=== PATIENT | female | born 1985 | race Caucasian/White ===

== ENCOUNTER 2016-10-04 09:02 | Emergency (ER) | payer MEDICAID ==
[~2016-10-04] VITALS: Ht 165.1 cm; Wt 91.5 kg
[2016-10-04 09:22] VITALS: Ht 165.1 cm; Wt 91.5 kg
[2016-10-04 09:56] LABS: ADD SCAN DIFF NO
[2016-10-04 10:05] LABS: BASOPHILS % 0.4 % (0.0-2.0); EOSINOPHILS # 0.2 10^3/ul (0.0-0.5); HEMATOCRIT 39.7 % (37.0-47.0); HEMOGLOBIN 13.5 g/dl (12.0-16.0); LYMPHOCYTES % 22.9 % (15.0-51.0); MEAN CORPUSCULAR HEMOGLOBIN 29.3 pg (29.0-33.0); MEAN CORPUSCULAR VOLUME 86.1 fl (82.0-101.0); MONOCYTE # 0.5 10^3/ul (0.3-0.9); MONOCYTES % 5.8 % (0.0-11.0); NEUTROPHIL # 5.9 10^3/ul (1.6-7.5); NEUTROPHILS % 68.7 % (39.0-77.0); PLATELET COUNT 284 10^3/UL (140-415); RED BLOOD COUNT 4.61 10^6/ul (4.20-5.40); RED CELL DISTRIBUTION WIDTH 13.2 % (11.5-14.5); WHITE BLOOD COUNT 8.6 10^3/ul (4.8-10.8)
[2016-10-04 10:10] LABS: ADD UMIC YES; URINE BILIRUBIN (Dip) NEGATIVE (NEGATIVE); URINE BLOOD (Dip) NEGATIVE (NEGATIVE); URINE COLOR LT. YELLOW (YELLOW); URINE GLUCOSE (Dip) NEGATIVE (NEGATIVE); URINE KETONES (Dip) NEGATIVE (NEGATIVE); URINE LEUKOCYTE ESTERASE (Dip) 1+ (NEGATIVE); URINE NITRITE (Dip) NEGATIVE (NEGATIVE); URINE TOTAL PROTEIN (Dip) NEGATIVE (NEGATIVE); URINE UROBILINOGEN (Dip) 0.2 E.U./dL (0.1-1.0)
[2016-10-04 10:27] LABS: SQUAMOUS EPITHELIAL CELL,UR MODERATE; URINE RBCS NONE SEEN /HPF (0)
[2016-10-04 10:28] LABS: BACTERIA,URINE FEW
--- NOTE | 2016-10-04 10:30 | RADRPT ---
PROCEDURE: US OB. CLINICAL INDICATION: Vaginal bleeding TECHNIQUE: Transabdominal and endovaginal imaging of the gravid uterus is available for review COMPARISON: None available FINDINGS: There is a single intrauterine demonstrating a heart rate of 174 bpm. The crown-rump anival th equals 2.42 cm, giving an estimated gestational age of 8 weeks 4 days by ultrasound criteria. No subchorionic hemorrhage is identified. The ovaries are unremarkable. IMPRESSION: Single live intrauterine with an estimated gestational age of 8 weeks 4 days by ultrasound criteria and an estimated date of delivery of 05/12/2017. RPTAT: HH .Leah Frazier MD, MD Date Time Electronically viewed and signed by .Leah Frazier MD, on 10/04/2016 10:30 .G/
[2016-10-04] MEDS ORDERED: CEPH-443 PO (11:17)
--- NOTE | 2016-10-04 11:33 | ERD ---
ER Documentation Chief Complaint Date/Time DATE: 10/04/16 TIME: 11:27 Chief Complaint 9 WEEKS WITH SUPRA PUBIC PAIN HPI This is a 31-year-old female stating that she is 9 weeks presenting to the emergency department complaining of suprapubic tenderness for 1 day. Patient states that the pain is around 7 out of 10, she states that it is worse with bending motion and walking. [facility]LOMATIC OFFICER. She denies any fever, nausea, vomiting. She admits to having dysuria. Denies any vaginal discharge. Patient states that she takes the right vitamins she has not taken any other medications for this peer ROS All systems reviewed and are negative except as per history of present illness. Medications Home Meds Active Scripts Cephalexin* (Keflex*) 500 Mg Capsule, 500 MG PO QID for 7 Days, CAP Prov:ROLF MIKE PA-C 10/04/16 Allergies Allergies: Coded Allergies: No Known Allergy (Verified , 10/04/16) PMhx/Soc Medical and Surgical Hx: pt denies Medical Hx, pt denies Surgical Hx Hx Alcohol Use: No Hx Substance Use: No Hx Tobacco Use: No Smoking Status: Never smoker Physical Exam Vitals Vital Signs Date Time Temp Pulse Resp B/P Pulse Ox O2 Delivery O2 Flow Rate FiO2 10/04/16 09:22 98.9 78 18 127/74 98 Physical Exam General: well-developed/well-nourished, in no apparent distress, non-toxic appearing HENT: NC/AT, bilateral tympanic membrane is normal with good cone of light, nares patent, oropharynx clear without exudates Eyes: Conjunctiva normal, PERRLA, EOMI Neck: Supple, no lymphadenopathy Pulm: CTA bilaterally, no rales, rhonchi, or wheezing heard CV: Normal S1S2 GI: Soft, non-distended, normal bowel sounds, tender to palpation in pelvic region, negative rosvings, negative aj's Back: No midline tenderness, no masses, No CVAT Ext: No clubbing, cyanosis, or edema Neuro: Alert and Orientated, gait normal Skin: Intact, normal turgor Psych: Normal mood and mentation Result Diagram: 10/04/16 0946 Results 24 hrs Laboratory Tests Test 10/04/16 09:45 3 09:46 Urine Bacteria FEW Urine Bilirubin NEGATIVE Urine Clarity CLEAR Urine Color LT. YELLOW Urine Glucose NEGATIVE% Urine Hemoglobin NEGATIVE Urine Ketones NEGATIVE Urine Leukocyte Esterase 1+ Urine Microscopic RBC NONE SEEN/HPF Urine Microscopic WBC 0-2/HPF Urine Nitrite NEGATIVE Urine Specific [place] 1.015 Urine Squamous Epithelial Cells MODERATE Urine Total Protein NEGATIVE Urine Urobilinogen 0.2 E.U./dL Urine pH 6.5 Basophils # 0.010^3/ul Basophils % 0.4% Beta HCG, Quantitative 465802.0mIU/ml Eosinophils # 0.210^3/ul Eosinophils % 2.0% Hematocrit 39.7% Hemoglobin 13.5g/dl Lymphocytes # 2.010^3/ul Lymphocytes % 22.9% Mean Corpuscular Hemoglobin 29.3pg Mean Corpuscular Hemoglobin Concent 34.0g/dl Mean Corpuscular Volume 86.1fl Mean Platelet Volume 10.0fl Monocytes # 0.510^3/ul Monocytes % 5.8% Neutrophils # 5.910^3/ul Neutrophils % 68.7% Nucleated Red Blood Cells # 0.010^3/ul Nucleated Red Blood Cells % 0.0/100WBC Platelet Count 13715^3/UL Red Blood Count 4.6110^6/ul Red Cell Distribution Width 13.2% White Blood Count 8.610^3/ul Procedures/MDM MDM: 31-year-old female stating that she is 9 weeks presents to the ER with pelvic pain in which is likely due to a urinary tract infection. Low suspicion for complete , ectopic , molar , ovarian torsion, appendicitis, cholecystitis, pancreatitis, obstruction, pyelonephritis due to diagnostic testing and physical examination. UA, urine culture, blood work, ultrasound was done in the ED. Patient needs to follow-up with an DIPLOMATIC OFFICER for further evaluation and management. On examination patient appears well, she has stable vital signs and afebrile. Lab work was done. CBC did not show any evidence of leukocytosis or anemia. Beta hCG was ~100,000 which is a little bit more elevated than normal for 8 week . However I have discussed this case with Dr. Ann, patient will follow up with her DIPLOMATIC OFFICER 2 days for repeat lab work. OB ultrasound was done and did not show any evidence of ectopic, molar . US stated: Single live intrauterine with an estimated gestational age of 8 weeks 4 days by ultrasound criteria and an estimated date of delivery of 05/12/2017. Disposition: hemodynamically stable. Prescription for Keflex was provided for the next 7-10 days. Patient will follow-up with her DIPLOMATIC OFFICER in 2 days. Discussed return sooner for any worsening signs or symptoms. Discussed to return to the ED for any worsening signs or symptoms. Patient understood and agreed with this plan. Departure Diagnosis: Primary Impression: UTI in Trimester: first trimester Qualified Code: O23.41 - UTI in , first trimester Condition: Stable Patient Instructions: Understanding Urinary Tract Infections (UTIs) [facility] Usted se green hecho un examen mdico de control que le indica que no est en janna condicin que requiera tratamiento urgente en el Departamento de Emergencia. Un estudio ms profundo y el tratamiento de whitt condicin pueden esperar sin ningn riesgo hasta que usted sea atendida/o en el consultorio de whitt mdico o janna cl lorenza. Es responsabilidad suya arreglar janna sterling para el seguimiento del yuan. MANEJO DE CONDICIONES NO URGENTES EN EL FUTURO 1) Si usted tiene un mdico de atencin primaria: Usted debera llamar a whitt mdico de atencin primaria antes de venir al departamento de emergencia. Despus de las horas de consultorio, whitt doctor o whitt asociado/a est disponible por telfono. El mdico o enfermero de yue en el servicio telefnico puede asesorarle por alvino medio para atender el problema, o yuan contrario se puede programar janna sterling. 2) Si usted no tiene un mdico de atencin primaria: Llame al mdico o clnica de referencia que aparece abajo kamaljit las horas de consultorio para hacer janna sterling para que le vean. CLINICAS: [facility] [phone] [facility] [phone] [facility] [phone] [place] [id number] [phone] [place] [id number] [phone] [facility] [phone] [address] Additional Instructions: Llame al doctor MAANA y tony janna STERLING PARA DENTRO 2 TURCIOS.Dgale a la secretaria que nosotros le instruimos hacer esta sterling.Avise o llame si whitt condicin se empeora antes de la sterling. Regresa aqui si peor o no mejor. [place] toda la medicina krystle y radha se le indic. Regrese a estas instalaciones si no se mejora radha esperbamos o radha le dijimos. ROLF MIKE PA-C Oct 04, 2016 11:33
[2016-10-04 11:51] VITALS: BP 134/67; PULSE 77; RESP 16; TEMP 98.9
== END 2016-10-04 11:30 | disposition home or self-care (01) ==
LOC: FTE 09:02
DX: O23.41 Unspecified infection of urinary tract in pregnancy, first trimester (principal); R10.30 Lower abdominal pain, unspecified; R10.2 Pelvic and perineal pain; Z3A.08 8 weeks gestation of pregnancy
CPT/HCPCS: 36415; 76801; 76817; 81001; 84702; 85025; 86900; 86901; Z7502; 81003

== ENCOUNTER 2017-03-18 10:31 | Outpatient (CLI) | payer MEDICAID ==
[~2017-03-18] VITALS: Ht 167.6 cm; Wt 93.2 kg
[~2017-03-18 10:31] MED LIST: CEPH-443 PO
[2017-03-18 12:05] VITALS: BP 101/58; PULSE 80; RESP 18; Ht 167.6 cm; Wt 93.2 kg
[2017-03-18] MEDS ORDERED: PRENAT PO (12:05)
--- NOTE | 2017-03-18 14:08 | RADRPT ---
PROCEDURE: US biophysical profile. CLINICAL INDICATION: Status post fall. well-being. TECHNIQUE: Multiple sonographic images of the uterus were obtained. The images were revi ewed on a PACS workstation. COMPARISON: Pelvic ultrasound. 10/04/2016. FINDINGS: There is a single live intrauterine gestation. heart rate is 154 beats per minute. The position is cephalic. The placenta is posterior, grade 1-2. No evidence of placental abruption. The SONIYA is 10.0 cm. Breathing Movement: 2 Gross Body Movement: 2 Tone: 2 Qualitative Amniotic Fluid Volume: 2 TOTAL: 8 IMPRESSION: 1. Single viable intrauterine gestation. 2. Biophysical profile = 03/13. 3. SONIYA = 10.0 cm. RPTAT: QQ .Pippa Randall MD, MD Date Time Electronically viewed and signed by .Pippa Randall MD, MD on 03/18/2017 14:08 .N/
--- NOTE | 2017-03-18 15:34 | PN ---
Triage Information Date/Time Reason for visit: She has swollen on her stomach side arcos , no contraction, biophysical profile 8 out of 8 SONIYA 10 Kb negative Weeks of Gestation 32 /Para Diabetes: none Objective Vital Signs Date Time Temp Pulse Resp B/P Pulse Ox O2 Delivery O2 Flow Rate FiO2 03/18/17 12:05 98.9 80 18 101/58 97 Room Air Heart Rate: 130's Contractions: None Results/Medications Results 24 hrs Laboratory Tests Test 03/18/17 12:35 Kleihauer-Betke Stain 0.0000 Disposition: Discharge Assessment/Plan Advised bedrest hydration follow-up with [facility] in 24 hours MARIA MATHUR MD Mar 18, 2017 15:34
--- NOTE | 2017-03-18 15:35 | TRIAGE ---
OB Triage Datetime Report Generated by CPN: 03/18/2017 15:35 Datetime: 03/18/2017 15:06 Monitor Mode: External US Datetime: 03/18/2017 15:05 Maternal Assessment Level of Consciousness: Fully Conscious DTR's/Clonus: DTRs 1+ Headache: Denies Blurred Vision: No Respiratory Effort: Unlabored Breath Sounds, Left: Clear and Equal Breath Sounds, Right: Clear and Equal Nausea/Vomiting: Denies RUQ Epigastric Pain: Denies Facial Edema: None Labor Evaluation Frequency: NONE Pattern: Normal: <= 5 Contractions in 10 Minutes Heart Rate FHR Baseline Rate: 135 Monitor Mode: External US Variability: Moderate 6-25 bpm Accelerations: 15X15 Decelerations: None Category: Category I Pain Presence: None/Denies Pain Type: N/A Vaginal Exam Membrane Status: Intact Datetime: 03/18/2017 14:00 Stage of : OB Triage Maternal Assessment Level of Consciousness: Fully Conscious Labor Evaluation Frequency: none Monitor Mode: External Resting Tone [place]: Relaxed Heart Rate FHR Baseline Rate: 135 Monitor Mode: External US Variability: Moderate 6-25 bpm Accelerations: 15X15 Decelerations: None Pain Assessment Pain Scale: 0 Pain Goal: 0 Vaginal Exam Membrane Status: Intact Vaginal Bleeding: None Datetime: 03/18/2017 13:00 Stage of : OB Triage Maternal Assessment Level of Consciousness: Fully Conscious Labor Evaluation Frequency: none Monitor Mode: External Resting Tone [place]: Relaxed Heart Rate FHR Baseline Rate: 135 Monitor Mode: External US Variability: Moderate 6-25 bpm Accelerations: 15X15 Decelerations: None Pain Assessment Pain Scale: 0 Pain Goal: 0 Vaginal Exam Membrane Status: Intact Vaginal Bleeding: None Datetime: 03/18/2017 12:01 Assessment Type: Triage Maternal Assessment Level of Consciousness: Fully Conscious DTR's/Clonus: DTRs 2+; No Clonus Headache: Denies Blurred Vision: No Respiratory Effort: Unlabored; Regular Rhythm; Equal Expansion Breath Sounds, Left: Clear and Equal Breath Sounds, Right: Clear and Equal Nausea/Vomiting: Denies RUQ Epigastric Pain: Denies Lower Extremities Edema: None Degree: None Upper Extremities Edema: None Degree: None Facial Edema: None Fall Risk Assessment History of Falling: (0) No Secondary Diagnosis: (0) No Ambulatory Aid: (0) Bedrest/Nurse Assist IV Therapy: (0) No Gait: (0) Normal/Bedrest/Immobile Mental Status: (0) Oriented to Own Ability Fall Score: 0 Fall Risk Score Definition: No Risk: No action required Datetime: 03/18/2017 12:00 Stage of : OB Triage Time of Arrival: 03/18/2017 10:18 EGA: 32.3 Arrived By: Ambulatory Arrived From: Home Chief Complaint: PT HERE S/P FALL ONTO KNEES Movement: Present Contractions: Denies/Absent Rupture of Membranes: Denies Vaginal Bleeding: None Vaginal Discharge: Denies Recent Sexual Intercouse: Denies Abdominal Trauma: Fall Patient Complaints: None Time Provider Notified: 03/18/2017 12:27 Provider Notified: KAREEN Initial Plan: KB STAIN, BPP Maternal Assessment Level of Consciousness: Fully Conscious Labor Evaluation Frequency: none Monitor Mode: External Resting Tone [place]: Relaxed Heart Rate FHR Baseline Rate: 145 Monitor Mode: External US Variability: Moderate 6-25 bpm Accelerations: 15X15 Decelerations: None Category: Category I Pain Assessment Pain Scale: 0 Pain Goal: 0 Vaginal Exam Membrane Status: Intact Vaginal Bleeding: None Datetime: 03/18/2017 10:55 Monitor Mode: External Monitor Mode: External US
== END 2017-03-18 15:40 | disposition home or self-care (01) ==
LOC: OBT 10:31 → L-D 10:32 → OBT 15:40
PROVIDERS: ATTEND Obstetrics & Gynecology
DX: O26.893 Other specified pregnancy related conditions, third trimester (principal); Z3A.32 32 weeks gestation of pregnancy; R10.9 Unspecified abdominal pain
CPT/HCPCS: 76818; 85460; Z7500; G0463

== ENCOUNTER 2017-05-04 09:30 | Inpatient (IN) | payer MEDICAID ==
[~2017-05-04] VITALS: Ht 167.6 cm; Wt 86.4 kg
[~2017-05-04 09:30] MED LIST changes: -CEPH-443 PO; +OXYTOCIN 30 UNITS/LR 500 ML BAG IV ONE; +PRENAT PO
[2017-05-04 09:45] VITALS: Ht 167.6 cm; Wt 86.4 kg
[2017-05-04] MEDS ORDERED: CARBOPROST 250 MCG INJ IM PRN (10:00)
[2017-05-04] MEDS ORDERED: OXYTOCIN 30 UNITS/LR 500 ML IV PRN (10:00)
[2017-05-04] MEDS ORDERED: MISOPROSTOL 200 MCG TAB PR PRN (10:00)
[2017-05-04] MEDS ORDERED: METHYLERGONOVINE 0.2 MG INJ IM PRN (10:00)
[2017-05-04 10:14] LABS: BASOPHILS % 0.3 % (0.0-2.0); EOSINOPHILS # 0.1 10^3/ul (0.0-0.5); EOSINOPHILS % 0.5 % (0.0-7.0); HEMATOCRIT 35.3 % (37.0-47.0); HEMOGLOBIN 12.2 g/dl (12.0-16.0); LYMPHOCYTES # 1.7 10^3/ul (0.8-2.9); LYMPHOCYTES % 14.8 % (15.0-51.0); MEAN CORPUSCULAR HEMOGLOBIN 30.4 pg (29.0-33.0); MEAN CORPUSCULAR HGB CONC 34.6 g/dl (32.0-37.0); MEAN PLATELET VOLUME 10.4 fl (7.4-10.4); MONOCYTE # 0.7 10^3/ul (0.3-0.9); MONOCYTES % 5.7 % (0.0-11.0); NEUTROPHILS % 78.1 % (39.0-77.0); PLATELET COUNT 206 10^3/UL (140-415); RED BLOOD COUNT 4.01 10^6/ul (4.20-5.40); WHITE BLOOD COUNT 11.5 10^3/ul (4.8-10.8)
[2017-05-04] MEDS: LACTATED RINGER'S 1,000 ML IV SCH ×3 (10:23→13:00)
[2017-05-04 10:35] LABS: INR 0.93; PROTIME 12.5 Sec (12.2-14.2)
[2017-05-04 10:36] LABS: PARTIAL THROMBOPLASTIN TIME 30.3 Sec (25.0-35.0)
[2017-05-04] MEDS ORDERED: CEFAZOLIN 2 GM/50 ML (PMX) 50 ML IVPB SCH (11:00)
[2017-05-04] MEDS ORDERED: PHENYLephrine (100 MCG/ML) 5ML SYG ONE (12:49)
[2017-05-04] MEDS ORDERED: morphine SULFATE/PF (10 MG/10 ML) INJ ONE (12:49)
[2017-05-04] MEDS ORDERED: ONDANSETRON 4 MG INJ ONE (12:49)
[2017-05-04] MEDS ORDERED: OXYTOCIN 10 UNIT INJ ONE (12:49)
--- NOTE | 2017-05-04 13:57 | OPR ---
Operative Report Planned Procedure Free Text/Dictation 31 years old female EDC May 10, 2017 0 previous needed to [facility] for repeat Procedure date May 04, 2017 Procedure(s) Repeat section Performed by see signature line Assisting provider: INGRID LOTT MD Anesthesiologist: DEISY BOWEN MD Pre-procedure diagnosis 39 weeks history of previous Anesthesia Type: spinal Procedure Description Under satisfactory spinal] anesthesia, the patient was prepped and draped and placed in a supine position, tilted to the left. Pfannenstiel incision was made , carried through the subcutaneous tissue. Bleeders brought under control with electrocautery. Fascia incised to the length of the incision. Rectus muscles from the fascia, divided midline. Peritoneum exposed, entered through a transverse incision. Exploration of abdomen revealed gravid uterus normal- appearing tubes and ovary. Bladder flap was developed. Transverse incision was made in the lower segment of the uterus. Amniotic sac ruptured. Clear amniotic fluid noted. Light baby boy was delivered from unengaged vertex [] Nasal oropharyngeal suction was performed. The baby was handed to the team for immediate attention she received 20 units of Pitocin. The placenta was delivered manually intact. Uterine cavity cleaned with wet sponge and drainage established. Uterus closed in 2 layers using Monocryl #1 [] in continuous fashion. Peritoneal cavity irrigated with warm saline. Sponge, needle and instrument count reported to be correct. Abdominal peritoneum closed with [2 0 chromic cat gut continuously. Rectus muscle approximated with [few interrupted 2 -0 chromic catgut]. Fascia closed with [#1 PDS, subcutaneous tissue approximated with few interrupted 2-0 chromic catgut and closed with NSORB. Estimated blood loss [600]mL. Urine bag contained 200 cc of clear urine patient tolerated procedure well transferred to recovery room in good condition. Post-Procedure Findings: Live Baby boy 9 and 9 Estimated blood loss: other (600 cc) Specimen(s): no Grafts/Implants: no Complication(s): no Pt Condition post procedure: stable Physician Certification I, the undersigned physician, hereby certify that I have discussed the procedure described in this consent form with this patient (or the patient's legal site safety representative), including: * The risk and benefits of the procedure; * Any adverse reactions that may reasonably be expected to occur; * Any alternative efficacious methods of treatment which may be medically viable ; * The potential problems that may occur during recuperation; * Potential for blood transfusion and associated risks/benefits; and * Any research or economic interest I may have regarding this treatment. I further certify that the patient/legally responsible person was encouraged to ask question and that all questions were answered. MARIA MATHUR MD May 04, 2017 13:57
[2017-05-04] MEDS: OXYTOCIN 30 UNITS/LR 500 ML IV SCH ×2 (14:18→18:40)
[2017-05-04] MEDS ORDERED: KETOROLAC 30 MG INJ IV STA (15:25)
[2017-05-04] MEDS ORDERED: DIPHENHYDRAMINE 50 MG INJ IV PRN (16:00)
[2017-05-04] MEDS ORDERED: KETOROLAC 30 MG INJ IV PRN (16:00)
[2017-05-04] MEDS ORDERED: ONDANSETRON 4 MG INJ IV PRN (16:00)
[2017-05-04] MEDS ORDERED: morphine 2 MG INJ IV PRN (16:00)
[2017-05-04] MEDS ORDERED: NALOXONE (0.4 MG/ML) INJ IV PRN (16:00)
[2017-05-04 18:40] VITALS: BP 136/84; PULSE 87; RESP 18
[2017-05-04 20:00] VITALS: BP 129/86; PULSE 76; RESP 16
[2017-05-04] MEDS ORDERED: OXYTOCIN 30 UNITS/LR 500 ML IV SCH (23:56)
[2017-05-05] MEDS ORDERED: MISOPROSTOL 200 MCG TAB PR PRN
[2017-05-05] MEDS ORDERED: METHYLERGONOVINE 0.2 MG INJ IM PRN
[2017-05-05] MEDS ORDERED: CARBOPROST 250 MCG INJ IM PRN
[2017-05-05] MEDS ORDERED: LANOLIN 7 GM TUBE TOP PRN
[2017-05-05] MEDS ORDERED: OXYTOCIN 30 UNITS/LR 500 ML IV PRN
[2017-05-05] MEDS ORDERED: CEFAZOLIN 1 GM/50 ML (PMX) 50 ML IVPB SCH
[2017-05-05 00:20] VITALS: BP 106/71; PULSE 72; RESP 16
[2017-05-05 04:02] VITALS: BP 98/64; PULSE 68; RESP 16
[2017-05-05 07:40] VITALS: BP 97/53; PULSE 62; RESP 18
[2017-05-05 08:17] LABS: BASOPHIL # 0.1 10^3/ul (0.0-0.1); BASOPHILS % 0.4 % (0.0-2.0); EOSINOPHILS # 0.1 10^3/ul (0.0-0.5); EOSINOPHILS % 0.5 % (0.0-7.0); HEMATOCRIT 32.2 % (37.0-47.0); HEMOGLOBIN 10.6 g/dl (12.0-16.0); LYMPHOCYTES # 1.7 10^3/ul (0.8-2.9); LYMPHOCYTES % 14.1 % (15.0-51.0); MEAN CORPUSCULAR HEMOGLOBIN 29.3 pg (29.0-33.0); MEAN CORPUSCULAR HGB CONC 32.9 g/dl (32.0-37.0); MEAN PLATELET VOLUME 10.2 fl (7.4-10.4); MONOCYTE # 0.9 10^3/ul (0.3-0.9); MONOCYTES % 7.3 % (0.0-11.0); NEUTROPHIL # 9.2 10^3/ul (1.6-7.5); NEUTROPHILS % 77.2 % (39.0-77.0); PLATELET COUNT 193 10^3/UL (140-415); RED BLOOD COUNT 3.62 10^6/ul (4.20-5.40); WHITE BLOOD COUNT 11.9 10^3/ul (4.8-10.8)
[2017-05-05] MEDS: SENNA/DOCUSATE NA (8.6MG/50MG) TAB PO SCH ×2 (09:12→22:04)
[2017-05-05] MEDS: LACTATED RINGER'S 1,000 ML IV SCH ×2 (12:08→12:14)
[2017-05-05 12:11] VITALS: BP 102/57; PULSE 65; RESP 18
[2017-05-05] MEDS ORDERED: HYDROCODONE/APAP (5/325) TAB PO PRN ×2 (12:30)
[2017-05-05] MEDS ORDERED: OXYCODONE/ACETAMINOPHEN (5/325) TAB PO PRN (12:30)
[2017-05-05] MEDS: OXYCODONE/ACETAMINOPHEN (5/325) TAB PO PRN ×2 (14:23→22:05)
[2017-05-05 16:00] VITALS: BP 97/50; PULSE 68; RESP 18
[2017-05-05] MEDS: IBUPROFEN 600 MG TAB PO SCH (18:01)
[2017-05-05 20:00] VITALS: BP 95/67; PULSE 72; RESP 18
[2017-05-06] MEDS: IBUPROFEN 600 MG TAB PO SCH ×4 (00:56→17:55)
[2017-05-06] MEDS: OXYCODONE/ACETAMINOPHEN (5/325) TAB PO PRN ×3 (03:08→21:05)
[2017-05-06 04:00] VITALS: BP 101/55; PULSE 73; RESP 18
[2017-05-06 07:35] VITALS: BP 100/53; PULSE 70; RESP 19
[2017-05-06] MEDS ORDERED: INFLUENZA VIRUS VACCINE 0.5 ML SYG IM* ONE (09:00)
[2017-05-06] MEDS: SENNA/DOCUSATE NA (8.6MG/50MG) TAB PO SCH ×2 (10:08→21:05)
--- NOTE | 2017-05-06 12:50 | HP ---
Date/Time of Note Date/Time of Note DATE: 05/06/17 TIME: 12:45 OB - History Hx of Present Free Text/Dictation 31 years old female history of previous EDC 05/10/2070 admitted to [facility] at 39 weeks and 1 day for repeat C- pecan picker Complaint: 39 weeks 1 day history of previous admitted at 39 weeks Estimated Due Date: May 10, 2017 : 2 Para: 1 Care: Good Care Ultrasounds: Normal mid trimester US Obstetrical Complications: None Medical Complications: None Past Family/Social History * Past Medical, Surgical, Family and Obstetric Histories reviewed from chart. Rubella: immune RPR/VDRL: Negative GBS Status: Negative HBsAG: Negative OB Admission Exam Vital Signs Vital Signs Vital Signs Date Time Temp Pulse Resp B/P Pulse Ox O2 Delivery O2 Flow Rate FiO2 05/06/17 04:00 97.8 73 18 101/55 05/05/17 16:00 Room Air Physical Exam HEENT: WNL Heart: Rhythm Normal Lungs: Clear, Equal Abdomen: WNL Extremities: Normal Reflexes: Normal Cervical Dilatation: None Membranes: Intact Heart Rate: 130's Accelerations: Accelerations Present Decelerations: No Decelerations Intensity: Mild Last 72 hours Lab Results CBC & BMP 05/04/17 10:00 05/05/17 07:59 OB Assessment/Plan Reason for admission: other (39 weeks 1 day history of previous C- section) Plan: Other (39 weeks 1 day EDC 05/10/2017 history of previous C- section admitted to undergo repeat , complication of the surgery including but not limited to bowel and bladder injury wound infection wound hematoma has been extensively explained to the patient she understood well all questions answered she is willing to proceed with the operation) MARIA MATHUR MD May 06, 2017 12:50
--- NOTE | 2017-05-06 12:55 | QN ---
Documentation Comment , Post day 1 Vital signs stable Afebrile Abdomen soft Incision dry Bowel sounds present Lochia moderate Extremities Normal Ambulation encouraged MARIA MATHUR MD May 06, 2017 12:55
[2017-05-06 16:00] VITALS: BP 103/55; PULSE 75; RESP 19
[2017-05-06 20:00] VITALS: BP 120/74; PULSE 78; RESP 18
[2017-05-07] MEDS: IBUPROFEN 600 MG TAB PO SCH ×3 (00:32→12:52)
[2017-05-07 04:00] VITALS: BP 97/55; PULSE 68; RESP 18
[2017-05-07] MEDS: OXYCODONE/ACETAMINOPHEN (5/325) TAB PO PRN ×2 (04:24→08:16)
[2017-05-07 08:16] VITALS: BP 101/59; PULSE 71; RESP 18
[2017-05-07] MEDS: SENNA/DOCUSATE NA (8.6MG/50MG) TAB PO SCH (08:16)
[2017-05-07] MEDS ORDERED: DIPHTH/TET/ACEL PERTUSS (ADULT) 0.5 ML VIAL IM* ONE (09:00)
--- NOTE | 2017-05-07 09:53 | PD.PPDC ---
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
--- NOTE | 2017-05-07 09:56 | DS ---
Date/Time of Note Date/Time of Note DATE: 05/07/17 TIME: 09:54 Discharge Summary Admission/Discharge Info Admit Date/Time May 04, 2017 at 09:30 Discharge Date/Time May 07, 2017 at 9:50 AM Discharge Diagnosis Post repeat date 3 Patient Condition: Good Procedures Repeat Hx of Present Illness Term history of previous Hospital Course Satisfactory recovery uneventful postoperative course Home Meds Reported Medications Multivit/Min/Fol Ac/Iron/Pren* ( S*) 1 Tab Tab, 1 TAB PO DAILY, TAB 03/18/17 Follow-up Plan Post instructions given recommended to make appointment to be seen at the clinic in 1 week Primary Care Provider Care Physician No MARIA Infante MD May 07, 2017 09:56
== END 2017-05-07 13:21 | disposition home or self-care (01) | DRG 766 ==
LOC: L-D 09:30 → PP1 05-05 14:17
PROVIDERS: ADMIT Obstetrics & Gynecology; ATTEND Obstetrics & Gynecology
PROC: 10D00Z1 Extraction of Products of Conception, Low, Open Approach (ICD-10-PCS; principal; 2017-05-04 12:30)
DX: O34.219 Maternal care for unspecified type scar from previous cesarean delivery (principal); Z37.0 Single live birth; Z3A.39 39 weeks gestation of pregnancy
CPT/HCPCS: 85025; 85610; 85730; 86592; 86850; 86900; 86901; 90686; 90715; 99464; J0690; J1885; J2274; J2370; J2405; J2590; J7120

== ENCOUNTER 2019-03-23 16:43 | Emergency (ER) | payer MEDICAID ==
[~2019-03-23] VITALS: Ht 165.1 cm; Wt 99.8 kg
[~2019-03-23 16:43] MED LIST changes: +AMOX1TAB10 PO; +BEN25 PO; +CIPR7.5D LEFT EAR; +IBUP-1542 PO; -OXYTOCIN 30 UNITS/LR 500 ML BAG IV ONE; +TRIA15CR55 TOP
[2019-03-23 16:50] VITALS: Ht 165.1 cm; Wt 99.8 kg
[2019-03-23] MEDS ORDERED: ACETAMINOPHEN 500 MG TAB PO STA (17:20)
[2019-03-23] MEDS ORDERED: DIPHENHYDRAMINE 25 MG CAP PO ONE (17:30)
--- NOTE | 2019-03-23 17:36 | ERD ---
ER Documentation Chief Complaint Chief Complaint L LEG DISCOLORATION WITH MILD PAIN X 4 HRS AGO HPI 34-year-old female noticed some redness and irritation on her left calf approximately 4 hours ago. She believes she was bitten by an insect. She has a slight amount of bruising and redness. She denies any fevers, vomiting, shortness of breath. ROS All systems reviewed and are negative except as per history of present illness. Medications Home Meds Active Scripts Diphenhydramine Hcl* (Benadryl*) 25 Mg Cap, 25 MG PO Q6, #15 CAP Prov:ALEXANDRIA GRANADO MD 03/23/19 Triamcinolone Acetonide (Triamcinolone Acetonide) 0.1% - 15 Gm Cream.gm., 1 APPLIC TOP BID for 7 Days, #1 TUB Prov:ALEXANDRIA GRANADO MD 03/23/19 Ibuprofen* (Motrin*) 600 Mg Tab, 600 MG PO Q6, #15 TAB Prov:ALEXANDRIA GRANADO MD 03/23/19 Ciprofloxacin Hcl/Dexameth (Ciprodex Otic Suspension) 7.5 Ml Drops.susp, 4 DROP LEFT EAR BID for 7 Days, EA Prov:MICHA THOMPSON PA-C 09/11/17 Ibuprofen* (Motrin*) 600 Mg Tab, 600 MG PO Q6, #30 TAB Prov:MICHA THOMPSON PA-C 09/11/17 Amoxicillin/Potassium Clav (Amox-Clav 875-125 mg Tablet) 875-125 mg Tab, 1 TAB PO BID for 7 Days, #14 TAB Prov:MICHA THOMPSON PA-C 09/11/17 Reported Medications Multivit/Min/Fol Ac/Iron/Pren* ( S*) 1 Tab Tab, 1 TAB PO DAILY, TAB 03/18/17 Allergies Allergies: Coded Allergies: No Known Allergy (Verified , 10/04/16) PMhx/Soc Medical and Surgical Hx: pt denies Medical Hx, pt denies Surgical Hx Hx Alcohol Use: No Hx Substance Use: No Hx Tobacco Use: No Smoking Status: Never smoker FmHx Family History: No diabetes, No coronary disease, No other Physical Exam Vitals Vital Signs Date Temp Pulse Resp B/P (MAP) Pulse Ox O2 O2 Flow FiO2 Time Delivery Rate 03/23/19 97.1 87 20 176/75 99 16:50 (108) Physical Exam Const: No acute distress Head: Atraumatic Eyes: Normal Conjunctiva ENT: Normal External Ears, Nose and Mouth. Neck: Full range of motion. No meningismus. Resp: Clear to auscultation bilaterally Cardio: Regular rate and rhythm, no murmurs Abd: Soft, non tender, non distended. Normal bowel sounds Skin: No petechiae or rashes. On the left medial calf there is approximately 3 cm area of redness and irritation without fluctuance or swelling. There is some surrounding ecchymosis. There is no streaking, vesicles, induration. Minimal tenderness. Back: No midline or flank tenderness Ext: No cyanosis, or edema Neur: Awake and alert Psych: Normal Mood and Affect Results 24 hrs Current Medications Medications Dose Sig/Anna Start Time Status Last (Trade) Ordered Route PRN Stop Time Admin Dose Reason Admin 500 mg ONCE STAT 03/23/19 DC Acetaminophen PO 17:20 (Tylenol 03/23/19 17:21 Tab) 25 mg ONCE ONCE 03/23/19 DC Diphenhydrami PO 17:30 ne HCl 03/23/19 17:31 (Benadryl) Procedures/MDM Patient presents with signs and symptoms of what appears to be likely local reaction to insect bite. There is no current signs of cellulitis, abscess, DVT, ischemia, deficits, anaphylaxis, purpura or life-threatening rashes. She will be treated with cold compresses, Benadryl, Tylenol, triamcinolone, primary care follow-up and return precautions. The patient was stable with no new complaints during the ER course. Clinically, there is no current evidence to suggest meningitis, sepsis, acute abdomen, pneumonia, stroke, acute coronary syndrome, pulmonary embolism, aortic dissection or any other emergent condition appearing to require further evaluation or hospitalization. Patient counseled regarding my diagnostic impression and care plan. Prior to discharge all questions answered. Pt agrees with treatment plan and understands strict return precautions. Pt is instructed to follow up with primary care provider within 24- 48 hours. Precautionary instructions provided including instructions to return to the ER if not improving or for any worsening or changing symptoms or concerns. Disclaimer: Inadvertent spelling and grammatical errors are likely due to EHR/dictation software use and do not reflect on the overall quality of patient care. Also, please note that the electronic time recorded on this note does not necessarily reflect the actual time of the patient encounter. Departure Diagnosis: Primary Impression: Insect bite Encounter type: sequela Site of insect bite: unspecified site Qualified Codes: W57.XXXS - Bitten or stung by nonvenomous insect and other nonvenomous arthropods, sequela Condition: Stable Patient Instructions: Dermatitis, Non-Specific, Insect Bite Additional Instructions: Likely local reaction to insect bite. Apply ice at home. Return for worsening redness, fevers, new or worsening symptoms. ALEXANDRIA GRANADO MD Mar 23, 2019 17:36
[2019-03-23 18:10] VITALS: BP 149/71; PULSE 79; RESP 20
== END 2019-03-23 18:13 | disposition home or self-care (01) ==
LOC: FTE 16:43
DX: S80.862A Insect bite (nonvenomous), left lower leg, initial encounter (principal); W57.XXXA Bitten or stung by nonvenomous insect and other nonvenomous arthropods, initial encounter; Y92.9 Unspecified place or not applicable
CPT/HCPCS: Z7502; Z7610; 99283